=== PATIENT | male | born 1945 | race Caucasian/White ===

== ENCOUNTER 2019-02-14 07:42 | Emergency (ER) | payer OTHER ==
[~2019-02-14] VITALS: Ht 172.7 cm; Wt 81.6 kg
[2019-02-14 07:42] VITALS: BP 139/85
--- NOTE | 2019-02-14 07:42 | NUR ---
Phyllis her in [facility] - 02/14/19 at 1132 by MED PATIENT WAS TRANSFERED TO BED 9
[2019-02-14] MEDS ORDERED: NACL 0.9% 500 ML IV SCH (07:46)
--- NOTE | 2019-02-14 07:46 | NUR ---
RT IS IN THE ROOM
--- NOTE | 2019-02-14 07:50 | NUR ---
X-RAY IS AT BEDSIDE
--- NOTE | 2019-02-14 08:02 | NUR ---
BIBA W C/O SOB STARTING TODAY, EXACERBATED WHEN HE WALKED FROM THE RESTROOM TO HIS COUCH. PER EMS, ON ARRIVAL PT O2 SAT WAS 90% RA, LUNG SOUNDS WERE DIMINISHED. PT HAS BILAT CHEST TUBED PLACED & COVERED WITH GAUZE. PER EMS, PT HAS CHEST TUBES DRAINED EVERY 3 DAYS AT HOME BY HOME HEALTH NURSE. PT DENIES ANY PAIN AT THIS TIME. PT CONNECTED TO MONITOR , O2 SAT 96% ON RA TA THIS TIME. PT AAOX4, BREATHING NORAL , NO USE OF ACCESSORY MUSCLES AT THIS TIME. DENIES ANY SOB. BREATHING PATTERN EVEN AND NON-LABORED. WILL CONTINUE TO MONITOR PT. HX: STOMACH CA, HTN RX: CARVEDILOL, TRENTOL
[2019-02-14 08:10] LABS: BASOPHILS % (AUTO) 0.5 % (0.0-2.0); EOSINOPHILS # (AUTO) 0.4 K/uL (0-0.4); EOSINOPHILS % (AUTO) 4.3 % (0.0-4.0); HEMATOCRIT 32.6 % (36-52); HEMOGLOBIN 10.5 g/dL (12.0-18.0); LYMPHOCYTES % (AUTO) 22.1 % (20.5-51.1); MEAN CORPUSCULAR HEMOGLOBIN 29 pg (27-31); MEAN CORPUSCULAR HGB CONC 32 g/dL (33-37); MEAN CORPUSCULAR VOLUME 88.5 fL (80-94); MONOCYTES # (AUTO) 1.3 K/uL (0.8-1.0); MONOCYTES % (AUTO) 14.3 % (1.7-9.3); NEUTROPHILS # (AUTO) 5.2 K/uL (1.8-7.7); NEUTROPHILS % (AUTO) 58.8 % (42.2-75.2); PLATELET COUNT (AUTO) 219 K/uL (140-450); RED BLOOD CELL COUNT(AUTO) 3.69 MIL/uL (4.20-6.10); WHITE BLOOD COUNT (AUTO) 8.9 K/uL (4.8-10.8)
[2019-02-14] MEDS ORDERED: ERGO500028 PO (08:22)
[2019-02-14] MEDS ORDERED: FOLI1TAB90 PO (08:22)
[2019-02-14] MEDS ORDERED: CARV25TA PO (08:22)
[2019-02-14] MEDS ORDERED: PENT400T29 PO (08:22)
[2019-02-14] MEDS ORDERED: ONDA8TAB PO (08:22)
[2019-02-14] MEDS ORDERED: RANI150T8 PO (08:22)
[2019-02-14] MEDS ORDERED: FERR325E14 PO (08:22)
--- NOTE | 2019-02-14 08:28 | NUR ---
GAVE A CUP OF WATER TO PT, STATES ALEA SUAREZ AT THIS TIME. IVF INFUSING WELL. AT THE BEDSIDE. PT ON RA, O2 SAT 94%. DENIES ANY SOB. BREATHUING EVEN AND NON-LABORED. WILL CONTINUE TO MONITOR PT.
[2019-02-14 09:01] LABS: APPEARANCE,URINE CLEAR (CLEAR); BILIRUBIN,URINE NEGATIVE (NEGATIVE); BLOOD, URINE NEGATIVE (NEGATIVE); COLOR,URINE YELLOW (YELLOW); LEUKOCYTE ESTERASE ,URINE TRACE (NEGATIVE); NITRITE, URINE NEGATIVE (NEGATIVE); UGLUCOSE NEGATIVE (NEGATIVE)
[2019-02-14 09:04] LABS: PROTHROMBIN TIME 11.5 secs (10.8-13.4)
[2019-02-14 09:07] LABS: SODIUM SERUM 135 mmol/L (136-145)
[2019-02-14 09:08] LABS: CARBON DIOXIDE 24.9 mmol/L (21-32); CHLORIDE 102 mmol/L (98-107); CREATININE 0.5 mg/dL (0.7-1.3); GLUCOSE 106 mg/dL (74-106); POTASSIUM 3.9 mmol/L (3.5-5.1); UREA NITROGEN, BLOOD 8 mg/dL (7-18)
[2019-02-14 09:12] LABS: TOTAL BILIRUBIN 0.3 mg/dL (0.0-1.0)
[2019-02-14 09:13] LABS: ASPARTATE AMINOTRANSFERASE 15 U/L (15-37)
[2019-02-14 09:14] LABS: RBC,URINE NONE SEEN /HPF (0-5)
--- NOTE | 2019-02-14 10:07 | NUR ---
DR. MAY CALLED FOR PEER TO PEER WITH DR. CANELA
--- NOTE | 2019-02-14 10:08 | NUR ---
CHECKED ON PT, RESTING COMFORTABLY IN HIS BED. FAMILY AT THE BEDSIDE. WILL CONTINUE TO MONITOR PT.
--- NOTE | 2019-02-14 10:24 | NUR ---
DR. CANELA AT THE BEDSIDE.
[2019-02-14] MEDS ORDERED: ALBUTEROL SULFATE/IPRATROPIU 3 ML SOL IH ONE (10:40)
[2019-02-14 11:23] VITALS: BP 131/65
--- NOTE | 2019-02-14 11:25 | NUR ---
Patient discharged with v/s stable. Written and verbal after care instructions given and explained. Patient alert, oriented and verbalized understanding of instructions. Ambulatory with steady gait. All questions addressed prior to discharge. ID band removed. Patient advised to follow up with PMD. Opportunity to ask questions provided and answered.
== END 2019-02-14 11:25 | disposition home or self-care (01) ==
LOC: MED 07:42
DX: R06.02 Shortness of breath (principal); I10 Essential (primary) hypertension; Z85.028 Personal history of other malignant neoplasm of stomach; Z90.49 Acquired absence of other specified parts of digestive tract; Z98.890 Other specified postprocedural states; Z79.899 Other long term (current) drug therapy
CPT/HCPCS: 36415; 36600; 71045; 80053; 81001; 82803; 83605; 83880; 84484; 85025; 85610; 85730; 87040; 87086; 87186; 93005; 94640; 99284; J7030; J7620; Q0092